=== PATIENT | female | born 1995 | race Caucasian/White ===

== ENCOUNTER 2019-01-28 07:45 | Inpatient (IN) | payer MEDICAID ==
[~2019-01-28] VITALS: Ht 167.6 cm; Wt 98.9 kg
[2019-01-28 08:02] VITALS: BP 107/58; PULSE 98; Ht 167.6 cm; Wt 98.9 kg
[2019-01-28] MEDS ORDERED: PNV11TAB PO (08:03)
[2019-01-28] MEDS: LACTATED RINGER'S 1,000 ML IV SCH ×2 (08:29→16:10)
[2019-01-28] MEDS ORDERED: METHYLERGONOVINE 0.2 MG INJ IM PRN ×2 (08:30→12:30)
[2019-01-28] MEDS ORDERED: MISOPROSTOL 200 MCG TAB PR PRN ×2 (08:30→12:30)
[2019-01-28] MEDS ORDERED: OXYTOCIN 30 UNITS/LR 500 ML IV PRN ×2 (08:30→12:30)
[2019-01-28] MEDS ORDERED: LIDOCAINE 1% (MPF) 30 ML INJ INJ PRN (08:30)
[2019-01-28] MEDS ORDERED: CARBOPROST 250 MCG INJ IM PRN ×2 (08:30→12:30)
[2019-01-28] MEDS ORDERED: AMPICILLIN 2 GM/NS (PMX) 100 ML IV ONE (08:30)
[2019-01-28] MEDS ORDERED: BUTORPHANOL 2 MG INJ IV PRN ×2 (08:30)
[2019-01-28] MEDS ORDERED: OXYTOCIN 30 UNITS/LR 500 ML IV SCH ×4 (08:30→12:12)
[2019-01-28] MEDS ORDERED: METHYLERGONOVINE 0.2 MG TAB PO PRN (12:30)
[2019-01-28] MEDS ORDERED: NA PHOSPHATE/BIPHOS 133 ML ENEMA PR PRN (12:30)
[2019-01-28] MEDS ORDERED: BENZOCAINE 20% 56 ML SPRAY TOP PRN (12:30)
[2019-01-28] MEDS ORDERED: MAGNESIUM HYDROXIDE 30ML CUP PO PRN (12:30)
[2019-01-28] MEDS ORDERED: ONDANSETRON 4 MG INJ IV PRN (12:30)
[2019-01-28] MEDS ORDERED: WITCH HAZEL/GLYCERIN PAD PR PRN (12:30)
[2019-01-28] MEDS ORDERED: HYDROCODONE/APAP (5/325) TAB PO PRN ×2 (12:30)
[2019-01-28] MEDS ORDERED: ZOLPIDEM 5 MG TAB PO PRN (12:30)
[2019-01-28] MEDS ORDERED: DIPHENHYDRAMINE 25 MG CAP PO PRN (12:30)
[2019-01-28] MEDS: AMPICILLIN 1 GM/NS (PMX) 50 ML IV SCH ×3 (12:30→20:30)
[2019-01-28 13:10] VITALS: BP 127/80; PULSE 85; RESP 18
--- NOTE | 2019-01-28 13:52 | PREOPHP ---
DATE OF ADMISSION: 01/28/2019 HISTORY OF PRESENT ILLNESS: This is a 23-year-old lady, 2, para 1, EDC 02/12/2019 at 37 and 2/7 weeks, admitted to labor and delivery area in active labor. She had care in my [place] office and the care was uneventful. She started to have contractions about a few hours prio r to admission and got worse up to the time of admission. PAST PERSONAL HISTORY: No history of diabetes, TB, asthma. ALLERGIES: NO ALLERGIES. SOCIAL HISTORY: The patient does not smoke. She does not drink. MEDICATIONS: She does not take any drugs except her: 1. Iron. 2. Vitamins. GYNECOLOGIC HISTORY: She had menarche at the age of 15, every 28 days interval, 3 to 4 days duration and moderate in amount. FAMILY HISTORY: Noncontributory. OBSTETRIC HISTORY: She is 3, para 2. Her first delivery was in 2013, second in 2017, all no rmal deliveries. Baby weighed 5 pounds and 7 ounces. REVIEW OF SYSTEMS: CARDIOVASCULAR: No chest pains. RESPIRATORY: No cough. GASTROINTESTINAL: No diarrhea. No vomiting. GENITOURINARY: No dysuria. PHYSICAL EXAMINATION: GENERAL: Reveals a conscious, coherent lady and in no acute distress. VITAL SIGNS: Her blood pressure 120/80, pulse rate 80 per minute, respirations 16 per minute. BREASTS, HEART AND LUNGS: Within normal limits. ABDOMEN: Soft. Fundic height is 37 cm. heart tones are 140 per minute. PELVIC: Done by me at 10:22 a.m. 01/28/2019 revealed the cervix to be 7 cm dilated, 100% effaced, st ation 0 with the bag of water intact and bulging. EXTREMITIES: No pedal edema. ADMITTING DIAGNOSES: A 37 and 2/7 weeks intrauterine in active labor. The plans of delivery were explained to the patient and to her partner and both understood everything totally. The risks, benefits and alternatives were discussed with her as well. She had artificial rupture of membranes. The patient desired to go for vaginal delivery. Electrode and IUPC were not i nserted as the nurses are comfortable with the external monitor. A light meconium stained amniotic f luid was noted. The patient was started on Pitocin augmentation. Dictated By: ALLEN CHEUNG/NAOMY Conf#: [id number] [facility]#: [id number]
[2019-01-28 14:10] VITALS: BP 129/79; PULSE 90; RESP 19
--- NOTE | 2019-01-28 15:44 | OPR ---
DATE OF OPERATION: 01/28/2019 This is a 23-year-old lady, 3, para 2 at 37 and 5/7 weeks, EDC 02/12/2019. Admitted, in active labor. HISTORY OF PRESENT ILLNESS: See dictated history and physical. PHYSICAL EXAMINATION: See dictated history and physical. ADMITTING DIAGNOSIS: A 37 and 5/7 weeks' intrauterine in labor. PROGRESS OF LABOR: See dictated history and physical. The patient did not receive any pain medication. She progressed well. She had artificial rupture of membranes at 10:22 a.m., 01/28/2019. light meconium stained amniotic fluid was noted. The patient progressed well, had a normal spontaneous vaginal delivery and delivered a healthy baby girl, 9 and 9, weighing 7 pounds, 15 ounces 3600 grams, 20 inches long over a first-degree midline perineal tear. The placenta was delivered spontaneously and complete. The placenta was delivered spontaneously and complete. Manual exploration of the uterus revealed no membranes left behind. Cervix, vagina, and vulva were free of hematoma. The position was direct occiput anterior. There were 3 vessels in the cord. The placenta was normal with a smooth shiny side and a pinkish maternal side. First-degree midline tear was repaired with continuous suture with 2-0 chromic with 1% Xylocaine. There was 1 loop of cord around the baby's neck that needs to be released prior to the delivery of the rest of the body of the baby. The patient tolerated the procedure well. Estimated blood loss about 300 mL. Vital signs were stable during and after the delivery. Dictated By: ALLEN CHEUNG/NAOMY Conf#: [id number] DID#: [id number]
[2019-01-28 16:00] VITALS: BP 125/74; PULSE 87; RESP 18
[2019-01-28] MEDS: LACTATED RINGER'S 1,000 ML IV* SCH ×2 (17:37→20:12)
[2019-01-28] MEDS: LANOLIN HPA 1 PKT TOP PRN (17:53)
[2019-01-28] MEDS: IBUPROFEN 800 MG TAB PO PRN (17:54)
[2019-01-28 20:00] VITALS: BP 120/67; PULSE 79; RESP 19; RESP 20
[2019-01-28] MEDS: SENNA/DOCUSATE NA (8.6MG/50MG) TAB PO SCH (21:00)
[2019-01-29] MEDS: LACTATED RINGER'S 1,000 ML IV SCH (00:10)
[2019-01-29] MEDS: AMPICILLIN 1 GM/NS (PMX) 50 ML IV SCH ×2 (00:28→04:06)
[2019-01-29] MEDS: LACTATED RINGER'S 1,000 ML IV* SCH (04:06)
[2019-01-29 04:13] VITALS: BP 110/62; PULSE 89; RESP 18
[2019-01-29] MEDS: IBUPROFEN 800 MG TAB PO PRN (06:20)
[2019-01-29 08:00] VITALS: BP_SYST 108; PULSE 86; RESP 18
[2019-01-29] MEDS: SENNA/DOCUSATE NA (8.6MG/50MG) TAB PO SCH ×2 (09:29→20:43)
[2019-01-29 16:00] VITALS: BP 107/75; PULSE 80; RESP 18
--- NOTE | 2019-01-29 16:53 | PN ---
Date/Time of Note Date/Time of Note DATE: 01/29/19 TIME: 16:51 Assessment/Plan VTE Prophylaxis Risk score (from Ns)>0 risk: 0 SCD applied (from Ns): No SCD contraindicated: low risk/ambulating Pharmacological prophylaxis: NA/contraindicated Pharm contraindication: low risk/ambulating Lines/Catheters IV Catheter Type (from [facility]): Peripheral IV Assessment/Plan Assessment/Plan POST DAY 1 CHRONIC IRON DEFICIENCY ANEMIA HOME TOMORROW RETURN TO CLINIC IN 2 WEEKS CONTINUE WITH VITAMINS OD AND FERROUS SULFATE PO TID DIET ADVISED COUNSELED INSTRUCTED CALL OFFICE IF THERE IS ANY PROBLEMS OR CONCERN Result Diagram: 01/29/19 07 Results 24hrs Laboratory Tests Test 01/29/19 06:25 01/29/19 07:21 Lab Scanned Report REFERENCE LAB White Blood Count 14.5 H Red Blood Count 3.52 L Hemoglobin 8.3 L Hematocrit 27.3 L Mean Corpuscular Volume 77.6 L Mean Corpuscular Hemoglobin 23.6 L Mean Corpuscular Hemoglobin Concent 30.4 L Red Cell Distribution Width 17.8 H Platelet Count 328 Mean Platelet Volume 8.5 Immature Granulocytes % 0.600 H Neutrophils % 72.4 Lymphocytes % 19.5 Monocytes % 6.7 Eosinophils % 0.6 Basophils % 0.2 Nucleated Red Blood Cells % 0.0 Immature Granulocytes # 0.090 H Neutrophils # 10.5 H Lymphocytes # 2.8 Monocytes # 1.0 H Eosinophils # 0.1 Basophils # 0.0 Nucleated Red Blood Cells # 0.0 Subjective 24 Hr Interval Summary Free Text/Dictation FEELS GOOD, GOOD URINE OUTPUT, GOOD BOWEL MOVEMENT Exam/Review of Systems Exam Vitals Vital Signs Date Temp Pulse Resp B/P (MAP) Pulse Ox O2 O2 Flow FiO2 Time Delivery Rate 01/29/19 98.3 86 18 108/ Room Air 08:00 Intake and Output 01/28/19 01/28/19 01/29/19 1515:00 23:00 07:00 IntakeIntake Total 1475 ml 600 ml OutputOutput Total 605 ml 400 ml 500 ml BalanceBalance 870 ml 200 ml -500 ml Exam VITAL SIGNS STABLE: YES AFEBRILE: YES BREAST NOT ENGORGED, NON-TENDER, NO APPRECIABLE MASS: YES LUNGS CLEAR, NO RALES, WHEEZES, RHONCHI: YES SINUS RHYTHM WITHOUT MURMUR: YES ABDOMEN: NON-TENDER FUNDUS: BELOW UMBILICUS BOWEL SOUNDS: PRESENT UTERUS: FIRM TEAR HEALING WELL LOCHIA: LIGHT DEEP TENDON REFLEXES: 0 EXTREMITIES: NO CALF TENDERNESS EDEMA SCALE: NONE Results Results 24hrs Laboratory Tests Test 01/29/19 06:25 01/29/19 07:21 Lab Scanned Report REFERENCE LAB White Blood Count 14.5 H Red Blood Count 3.52 L Hemoglobin 8.3 L Hematocrit 27.3 L Mean Corpuscular Volume 77.6 L Mean Corpuscular Hemoglobin 23.6 L Mean Corpuscular Hemoglobin Concent 30.4 L Red Cell Distribution Width 17.8 H Platelet Count 328 Mean Platelet Volume 8.5 Immature Granulocytes % 0.600 H Neutrophils % 72.4 Lymphocytes % 19.5 Monocytes % 6.7 Eosinophils % 0.6 Basophils % 0.2 Nucleated Red Blood Cells % 0.0 Immature Granulocytes # 0.090 H Neutrophils # 10.5 H Lymphocytes # 2.8 Monocytes # 1.0 H Eosinophils # 0.1 Basophils # 0.0 Nucleated Red Blood Cells # 0.0 Medications Medication Current Medications Butorphanol Tartrate (Stadol) 1 mg Q2H PRN IV .PAIN SCALE 1-5; Start 01/28/19 at 08:30 Butorphanol Tartrate (Stadol) 2 mg Q2H PRN IV .PAIN SCALE 6-10; Start 01/28/19 at 08:30 Lidocaine (Xylocaine 1% (Mpf)) 30 ml ONCE PRN INJ .EPISIOTOMY; Start 01/28/19 at 08:30 Methylergonovine Maleate (Methergine) 0.2 mg ONCE PRN IM .VAGINAL BLEEDING; Start 01/28/19 at 08:30 Carboprost Tromethamine (Hemabate) 250 mcg ONCE PRN IM .VAGINAL BLEEDING; Start 01/28/19 at 08:30 Misoprostol (Cytotec) 1,000 mcg ONCE PRN ME .VAGINAL BLEEDING; Start 01/28/19 at 08:30 Methylergonovine Maleate (Methergine) 0.2 mg Q6H PRN PO .VAGINAL BLEED; Start 01/28/19 at 12:30 Ibuprofen (Motrin) 800 mg Q6 PRN PO MILD PAIN LEVEL 1-3 Last administered on 01/29/19at 06:20; Admin Dose 800 MG; Start 01/28/19 at 12:30 Acetaminophen/ Hydrocodone Bitart ([place] (5/325)) 1 tab Q4H PRN PO MODERATE PAIN LEVEL 4-6; Start 01/28/19 at 12:30 Acetaminophen/ Hydrocodone Bitart ([place] (5/325)) 2 tab Q4H PRN PO SEVERE PAIN LEVEL 7-10; Start 01/28/19 at 12:30 Ondansetron HCl (Zofran Inj) 4 mg Q6H PRN IV NAUSEA/VOMITING; Start 01/28/19 at 12:30 Diphenhydramine HCl (Benadryl) 25 mg Q6H PRN PO .PRUTITUS; Start 01/28/19 at 12:30 Zolpidem Tartrate (Ambien) 5 mg QHS PRN PO .INSOMNIA; Start 01/28/19 at 12:30 Senna/Docusate Sodium (Senokot-S) 1 tab BID PO Last administered on 01/29/19at 09:29; Admin Dose 1 TAB; Start 01/28/19 at 21:00 Magnesium Hydroxide (Milk Of Mag) 30 ml Q12H PRN PO .CONSTIPATION; Start 01/28/19 at 12:30 Sodium Biphosphate/ Sodium Phosphate (Fleet Enema) 133 ml DAILY PRN ME .CONSTIPATION; Start 01/28/19 at 12:30 Witch [place]/ Glycerin (Tucks Pads) 1 pad BEDSIDE MEDICATION PRN ME .HEMORRHOID/EPISIOTOMY PAIN Last administered on 01/28/19at 17:53; Admin Dose 1 PAD; Start 01/28/19 at 12:30 Benzocaine (Dermoplast [place]) 1 spray BEDSIDE MEDICATION PRN TOP .HEMMORHOID/EPISIOTOMY PAIN Last administered on 01/28/19at 17:53; Admin Dose 1 SPRAY; Start 01/28/19 at 12:30 Lanolin (Lanolin Hpa) 1 applic BEDSIDE MEDICATION PRN TOP .NIPPLES Last administered on 01/28/19at 17:53; Admin Dose 1 APPLIC; Start 01/28/19 at 12:30 Measles/Mumps/ Rubella Vaccine Live (Mmr Ii Vaccine) 0.5 ml ONCE ONCE SC* ; Start 01/30/19 at 09:00; Stop 01/30/19 at 09:01 Diphtheria/ Tetanus/Acell Pertussis (Adacel) 0.5 ml ONCE ONCE IM* ; Start 01/30/19 at 09:00; Stop 01/30/19 at 09:01 Varicella Virus Vaccine Live (Varivax Vaccine With Diluent) 1,350 unit ONCE ONCE SC* ; Start 01/30/19 at 09:00; Stop 01/30/19 at 09:01 Oxytocin/Lactated Ringer's 500 ml @ 0 mls/hr ONCE PRN IV .VAGINAL BLEEDING; Start 01/28/19 at 12:30 Methylergonovine Maleate (Methergine) 0.2 mg ONCE PRN IM .VAGINAL BLEEDING; Start 01/28/19 at 12:30 Carboprost Tromethamine (Hemabate) 250 mcg ONCE PRN IM .VAGINAL BLEEDING; Start 01/28/19 at 12:30 Misoprostol (Cytotec) 1,000 mcg ONCE PRN ME .VAGINAL BLEEDING; Start 01/28/19 at 12:30 ALLEN SANTIAGO MD Jan 29, 2019 16:53
[2019-01-29 19:50] VITALS: BP 110/72; PULSE 91; RESP 19
[2019-01-29] MEDS: LANOLIN HPA 1 PKT TOP PRN (21:38)
[2019-01-30 03:35] VITALS: BP 122/75; PULSE 77; RESP 20
[2019-01-30 06:00] VITALS: BP 114/95; PULSE 102; RESP 18
[2019-01-30] MEDS ORDERED: VARICELLA VACCINE LIVE/PF 1,350 UNIT/0.5 ML ML SC* ONE (09:00)
[2019-01-30] MEDS: SENNA/DOCUSATE NA (8.6MG/50MG) TAB PO SCH (09:00)
[2019-01-30] MEDS ORDERED: MEASLES,MUMPS,RUBELLA VACCINE INJ SC* ONE (09:00)
[2019-01-30] MEDS ORDERED: DIPHTH/TET/ACEL PERTUSS (ADULT) 0.5 ML VIAL IM* ONE (09:00)
--- NOTE | 2019-01-31 16:21 | DELSUM ---
Delivery Summary A-C Datetime Report Generated by CPN: 01/31/2019 16:21 DELIVERY PERSONNEL Ceramic Coater Machine: Sebunnya, Phoebe MATERNAL INFORMATION Delivery Anesthesia: Local Medications in Delivery: PITOCIN 30 UNITS Delivery QBL (ml): 300 Placenta Cultured: No Maternal Complications: None LABOR SUMMARY EDC: 02/13/2019 00:00 No. Babies in Womb: 1 Attempted: No Labor Anesthesia: None LABOR INFORMATION Reason for Induction: Not Applicable Onset of Labor: 01/28/2019 05:00 Complete Dilatation: 01/28/2019 11:33 Oxytocin: Augmentation Group B Beta Strep: Negative Antibiotics # of Doses: 1 Antibiotics Time of Last Dose: 01/28/2019 08:55 Steroids Given: None Reason Steroids Not Administered: Not Applicable MEMBRANES Membranes Rupture Method: Artificial Rupture of Membranes: 01/28/2019 10:22 Length of Rupture (hr): 1.22 Amniotic Fluid Color: Light Meconium Amniotic Fluid Amount: Moderate Amniotic Fluid Odor: None STAGES OF LABOR Stage 1 hr: 6 Stage 1 min: 33 Stage 2 hr: 0 Stage 2 min: 2 Stage 3 hr: 0 Stage 3 min: 2 Total Time in Labor hr: 6 Total Time in Labor min: 37 VAGINAL DELIVERY Episiotomy: None Laceration Extension: First Degree Laceration Type: Perineal Laceration Repair: Yes Initial Vag Sponge Count: 10 Final Vag Sponge Count: 10 Initial Vag Sharps Count: 1 Final Vag Sharps Count: 2 Sponge Count Correct: Yes; Vaginal Sweep Performed Sharps Count Correct: Yes BABY A INFORMATION Delivery Date/Time: 01/28/2019 11:35 Method of Delivery: Vaginal Born in Route : No : N/A Forceps: N/A Vacuum Extraction: N/A Shoulder Dystocia : N/A SHOULDER DYSTOCIA BABY A Delivery Date/Time: 01/28/2019 11:35 PRESENTATION/POSITION BABY A Presentation: Cephalic Cephalic Presentation: Vertex Vertex Position: Left Occipital Anterior Breech Presentation: N/A PLACENTA INFORMATION BABY A Placenta Delivery Time : 01/28/2019 11:37 Placenta Method of Delivery: Spontaneous Placenta Status: Delivered SCORES BABY A Heart Rate 1 min: >100 bpm Resp Effort 1 min: Good Cry Reflex Irritability 1 min: Cough/Sneeze/Pulls Away Muscle Tone 1 min: Active Motion Color 1 min: Body [place], Extremit Blue Resuscitation Effort 1 min: Tactile Stimulation SCORE 1 MIN: 9 Heart Rate 5 min: >100 bpm Resp Effort 5 min: Good Cry Reflex Irritability 5 min: Cough/Sneeze/Pulls Away Muscle Tone 5 min: Active Motion Color 5 min: Body [place], Extremit Blue Resuscitation Effort 5 min: Tactile Stimulation SCORE 5 MIN: 9 INFORMATION BABY A Gestational Age at Delivery: 37.5 Gestational Status: Early Term- 37- 38.6 Weeks Outcome : Liveborn Infant Condition : Stable Infant Sex: Female IDENTIFICATION/MEDS BABY A ID Band Number: [id number] ID Band Location: Right Leg; Left Arm Sensor Applied: Yes Sensor Number: [id number] Sensor Location : Cord Clamp Vitamin K Given : Not Given Erythromycin Given: Not Given WEIGHT/LENGTH BABY A Birthweight (gm): 3600 Weight (lb): 7 Weight (oz): 15 Length (in): 20.00 Infant Length (cm): 50.80 CORD INFORMATION BABY A No. Cord Vessels: 3 Nuchal Cord : N/A Nuchal Cord- Other: 0 True Knot: 0 Cord Blood Taken: Yes Banking/Donate Info: NO Suction: Mouth; Nose ASSESSMENT BABY A Complications: Multiple Variable Decels
--- NOTE | 2019-02-02 17:07 | DS ---
DATE OF ADMISSION: 01/28/2019 DATE OF DISCHARGE: 01/30/2019 This is a 23-year-old lady, 2, para 1, EDC 02/12/2019, at 37 and 2/7 weeks, admitted in activ e labor. HISTORY OF PRESENT ILLNESS: See dictated history and physical. PHYSICAL EXAMINATION: See dictated history and physical. ADMITTING DIAGNOSIS: 37 and 2/7 weeks intrauterine in active labor. PROGRESS OF LABOR: See dictated history and physical. The patient progressed well. She had a normal spontaneous vaginal delivery and delivered a healthy b victor m girl, 9 and 9, weighing 7 pounds 15 ounces, over a first-degree midline perineal tear on . She tolerated the delivery well. She did have good course. She had good bowel movement . She had less pain on the second day. She was discharged home on second day on general diet and activity was restricted. She was counseled. She was ins tructed. She was discharged home in good and stable condition. She was told to continue to take her iron at home. The hematocrit on discharge was 27.3, hemoglobin 8.3. FINAL DIAGNOSES: 1. Chronic iron-deficiency anemia. 2. 37 and 2/7 weeks intrauterine , in active labor and delivered. Dictated By: ALLEN SANTIAGO MD NS/NTS Conf#: [id number] DID#: [id number] CC: ALLEN SANTIAGO MD;*EndCC*
== END 2019-01-30 15:35 | disposition home or self-care (01) | DRG 807 ==
LOC: OBT 07:45 → L-D 07:45 → OBT 08:10 → L-D 08:10 → PP1 12:55
PROVIDERS: ADMIT Obstetrics & Gynecology; ATTEND Obstetrics & Gynecology
PROC: 10E0XZZ Delivery of Products of Conception, External Approach (ICD-10-PCS; principal; 2019-01-28)
PROC: 0HQ9XZZ Repair Perineum Skin, External Approach (ICD-10-PCS; 2019-01-28)
PROC: 10907ZC Drainage of Amniotic Fluid, Therapeutic from Products of Conception, Via Natural or Artificial Opening (ICD-10-PCS; 2019-01-28)
PROC: 4A1HXCZ Monitoring of Products of Conception, Cardiac Rate, External Approach (ICD-10-PCS; 2019-01-28)
DX: O77.0 Labor and delivery complicated by meconium in amniotic fluid (principal); Z37.0 Single live birth; O70.0 First degree perineal laceration during delivery; O69.81X0 Labor and delivery complicated by cord around neck, without compression, not applicable or unspecified; Z3A.37 37 weeks gestation of pregnancy; Z23 Encounter for immunization
CPT/HCPCS: 80307; 85025; 85610; 85730; 86592; 86850; 86900; 86901; 87340; 90716; 99464; G0463; J0290; J2590; J7120